=== PATIENT | female | born 1960 | race African-American/Black ===

== ENCOUNTER 2021-10-12 14:04 | Inpatient (IN) | payer MEDICAID, OTHER ==
[~2021-10-12] VITALS: Ht 160 cm; Wt 98.5 kg
[2021-10-12 17:45] LABS: Basophils # (auto) 0 10 ^3/uL (0-0.2); Eosinophils # (auto) 0 10 ^3/uL (0-0.8); Red Blood Cells 5.11 10^6/uL (4.0-5.20); White Blood Cell 3.4 10^3/uL (4.4-10.8)
[2021-10-12 17:47] LABS: Basophils % (auto) 0.7 % (0.0-2.0); Hematocrit 37.6 % (36.0-46.0); Hemoglobin 12.3 g/dL (12.2-16.2); Lymphocytes # (auto) 0.6 10 ^3/uL (0.4-5.4); Lymphocytes % (auto) 18.3 % (10.0-50.0); Mean Corpuscular Hgb Conc. 32.6 g/dL (32.0-36.0); Mean Corpuscular Volume 73.6 fL (80.0-100.0); Monocytes # (auto) 0.3 10 ^3/uL (0-1.3); Monocytes % (auto) 7.9 % (0.0-12.0); Neutrophils # (auto) 2.5 10 ^3/uL (1.6-8.6); Neutrophils % (auto) 73.1 % (37.0-80.0); Nucleated Red Blood Cells % 0.1 %; Red Cell Distribution Width 16.7 % (11.8-14.3)
[2021-10-12 17:59] LABS: Albumin 3.5 g/dL (3.4-5.0); Calcium 8.6 mg/dL (8.5-10.1); Potassium 4.1 mmol/L (3.5-5.1)
[2021-10-12 18:00] LABS: INR 0.99 (0.9-1.15); Partial Thromboplastin Time 31.6 sec (23.6-33.0)
[2021-10-12 18:06] LABS: Bilirubin, Total 0.4 mg/dL (0.2-1.0); Total Protein 7.4 g/dL (6.4-8.2)
[2021-10-13] MEDS ORDERED: ACETAMINOPHEN 325 MG TAB PO PRN (06:00)
[2021-10-13] MEDS ORDERED: DOCUSATE SOD 100 MG CAP PO PRN (06:00)
[2021-10-13] MEDS ORDERED: DEXTROSE (50%) 50ML SYRG IV PRN (06:00)
[2021-10-13] MEDS ORDERED: SODIUM CHLORIDE 0.9% 1,000 ML IV ONE ×2 (06:00→08:00)
[2021-10-13] MEDS ORDERED: ONDANSETRON HCL 4 MG/2 ML VIAL IV PRN (06:00)
[2021-10-13] MEDS: InsuLIN REG 1unit/0.01ml Soln (100units/ml) SC SCH ×2 (07:00→11:30)
[2021-10-13] MEDS: ACCU-CHEK COMFORT CURVE STRIP VI SCH ×2 (07:08→11:58)
[2021-10-13] MEDS ORDERED: MORPHINE SULFATE 4 MG/ML SYR/VIAL IV PRN (08:00)
[2021-10-13] MEDS ORDERED: NITROGLYCERIN 0.4 MG SL TAB SL PRN (08:00)
[2021-10-13 09:00] VITALS: BP 96/60
[2021-10-13 11:57] LABS: Basophils # (auto) 0 10 ^3/uL (0-0.2); Eosinophils # (auto) 0 10 ^3/uL (0-0.8); Eosinophils % (auto) 0.1 % (0.0-7.0); Hemoglobin 11.9 g/dL (12.2-16.2); Lymphocytes # (auto) 0.4 10 ^3/uL (0.4-5.4); Neutrophils # (auto) 2.6 10 ^3/uL (1.6-8.6); Nucleated Red Blood Cells % 0.1 %; White Blood Cell 3.3 10^3/uL (4.4-10.8)
[2021-10-13 11:59] LABS: Basophils % (auto) 0.9 % (0.0-2.0); Hematocrit 36.4 % (36.0-46.0); Lymphocytes % (auto) 12.6 % (10.0-50.0); Mean Corpuscular Hgb Conc. 32.6 g/dL (32.0-36.0); Monocytes # (auto) 0.2 10 ^3/uL (0-1.3); Monocytes % (auto) 6.3 % (0.0-12.0); Neutrophils % (auto) 80.1 % (37.0-80.0); Red Blood Cells 4.97 10^6/uL (4.0-5.20); Red Cell Distribution Width 16.8 % (11.8-14.3)
[2021-10-13 12:02] LABS: BUN/Creatinine Ratio 10.6; Calcium 8.1 mg/dL (8.5-10.1); Potassium 4.1 mmol/L (3.5-5.1)
[2021-10-13 12:17] LABS: Mean Corpuscular Hemoglobin 23.9 pg (28.0-32.0); Mean Corpuscular Volume 73.3 fL (80.0-100.0)
[2021-10-13] MEDS ORDERED: ERGO20002 PO (14:00)
[2021-10-13] MEDS ORDERED: ZINC220T6 PO (14:00)
[2021-10-13] MEDS ORDERED: PANT40T PO (14:00)
[2021-10-13] MEDS ORDERED: ASCO500C49 PO (14:00)
[2021-10-13] MEDS ORDERED: SUCR1SUS10 PO (14:00)
[2021-10-13] MEDS ORDERED: POTA1TAB64 PO (14:03)
[2021-10-13] MEDS ORDERED: HYDR-4611 PO (14:03)
[2021-10-13] MEDS ORDERED: NALO4SPR2 NAS (14:03)
[2021-10-13] MEDS ORDERED: BACL10TA PO (14:03)
[2021-10-13] MEDS ORDERED: GABA300C10 PO (14:03)
[2021-10-13] MEDS ORDERED: FUR20T PO (14:03)
[2021-10-13] MEDS ORDERED: TIZA4TAB7 PO (14:03)
[2021-10-13] MEDS ORDERED: SUCRALFATE 1 GM/10 ML ORAL SUSP PO SCH (17:00)
[2021-10-13] MEDS ORDERED: InsuLIN REG 1unit/0.01ml Soln (100units/ml) SC SCH (22:00)
[2021-10-13] MEDS ORDERED: PANTOPRAZOLE 40 MG TAB PO SCH (22:00)
== END 2021-10-13 17:41 | disposition home or self-care (01) | DRG 137 ==
LOC: ER 14:04 → EDBD 14:04 → OVERFLOW 10-13 07:50 → WEST WING 10-13 09:10
PROVIDERS: ADMIT Internal Medicine; ATTEND Internal Medicine
DX: U07.1 COVID-19 (principal); J12.82 Pneumonia due to coronavirus disease 2019; N17.9 Acute kidney failure, unspecified; K92.0 Hematemesis; K74.60 Unspecified cirrhosis of liver; I95.9 Hypotension, unspecified; D50.9 Iron deficiency anemia, unspecified; E66.9 Obesity, unspecified; E66.01 Morbid (severe) obesity due to excess calories; E78.5 Hyperlipidemia, unspecified; I12.9 Hypertensive chronic kidney disease with stage 1 through stage 4 chronic kidney disease, or unspecified chronic kidney disease; K21.9 Gastro-esophageal reflux disease without esophagitis; K44.9 Diaphragmatic hernia without obstruction or gangrene; Z96.651 Presence of right artificial knee joint; M54.50 Low back pain, unspecified; K80.20 Calculus of gallbladder without cholecystitis without obstruction; N18.30 Chronic kidney disease, stage 3 unspecified; Z68.38 Body mass index [BMI] 38.0-38.9, adult; Z90.710 Acquired absence of both cervix and uterus
CPT/HCPCS: 36415; 74176; 80048; 80053; 82150; 83690; 85025; 85610; 85730; 86850; 86900; 86901; 87426; 96360; G0378

== ENCOUNTER 2022-08-12 20:04 | Inpatient (IN) | payer MEDICAID ==
[~2022-08-12] VITALS: Ht 160 cm; Wt 105.8 kg
[~2022-08-12 20:04] MED LIST: ASCO500C49 PO; BACL10TA PO; ERGO20002 PO; GABA300C10 PO; HYDR-4611 PO; NALO4SPR2 NAS; PANT40T PO; SUCR1SUS10 PO; TIZA4TAB7 PO; ZINC220T6 PO
[2022-08-12 21:47] LABS: Basophils # (auto) 0 10 ^3/uL (0-0.2); Basophils % (auto) 0.4 % (0.0-2.0); Eosinophils # (auto) 0 10 ^3/uL (0-0.8); Eosinophils % (auto) 0.1 % (0.0-7.0); Mean Corpuscular Hemoglobin 24.2 pg (28.0-32.0); Monocytes # (auto) 0.6 10 ^3/uL (0-1.3); Monocytes % (auto) 6.5 % (0.0-12.0); White Blood Cell 8.6 10^3/uL (4.4-10.8)
[2022-08-12 21:48] LABS: Hematocrit 38.9 % (36.0-46.0); Hemoglobin 12.4 g/dL (12.2-16.2); Lymphocytes % (auto) 11.6 % (10.0-50.0); Mean Corpuscular Volume 75.8 fL (80.0-100.0); Neutrophils % (auto) 81.4 % (37.0-80.0); Red Blood Cells 5.13 10^6/uL (4.0-5.20); Red Cell Distribution Width 16.8 % (11.8-14.3)
[2022-08-12 22:08] LABS: Albumin 3.6 g/dL (3.4-5.0); BUN/Creatinine Ratio 17.6; Calcium 8.8 mg/dL (8.5-10.1); Potassium 4.5 mmol/L (3.5-5.1)
[2022-08-12 22:11] LABS: Bilirubin, Total 0.3 mg/dL (0.2-1.0); Total Protein 7.5 g/dL (6.4-8.2)
[2022-08-13] MEDS ORDERED: ONDANSETRON HCL 4 MG/2 ML VIAL IV PRN (06:15)
[2022-08-13] MEDS ORDERED: ACETAMINOPHEN 325 MG TAB PO PRN (06:15)
[2022-08-13] MEDS ORDERED: HYDROcodone-ACET 5/325MG TAB PO PRN (06:15)
[2022-08-13] MEDS ORDERED: DOCUSATE SOD 100 MG CAP PO PRN (06:15)
[2022-08-13] MEDS ORDERED: MORPHINE SULFATE INJ 2 MG/ml SYRG IV PRN (06:30)
[2022-08-13] MEDS ORDERED: NITROGLYCERIN 0.4 MG SL TAB SL PRN (06:30)
[2022-08-13] MEDS ORDERED: cefTRIAXone 1GM/50ML D5W 50 ML IV ONE (06:45)
[2022-08-13 07:09] LABS: Eosinophils # (auto) 0 10 ^3/uL (0-0.8); Hemoglobin 12.2 g/dL (12.2-16.2); Mean Corpuscular Hemoglobin 23.8 pg (28.0-32.0); Monocytes # (auto) 0.8 10 ^3/uL (0-1.3)
[2022-08-13 07:12] LABS: Basophils # (auto) 0 10 ^3/uL (0-0.2); Basophils % (auto) 0.6 % (0.0-2.0); Eosinophils % (auto) 0.4 % (0.0-7.0); Hematocrit 38.5 % (36.0-46.0); Lymphocytes % (auto) 12.8 % (10.0-50.0); Mean Corpuscular Hgb Conc. 31.6 g/dL (32.0-36.0); Mean Corpuscular Volume 75.2 fL (80.0-100.0); Monocytes % (auto) 9.9 % (0.0-12.0); Neutrophils % (auto) 76.3 % (37.0-80.0); Nucleated Red Blood Cells % 0.1 %; Red Blood Cells 5.12 10^6/uL (4.0-5.20); White Blood Cell 7.8 10^3/uL (4.4-10.8)
[2022-08-13 07:39] LABS: Calcium 9.1 mg/dL (8.5-10.1); Potassium 4.5 mmol/L (3.5-5.1)
[2022-08-13 07:44] LABS: Albumin 3.4 g/dL (3.4-5.0); BUN/Creatinine Ratio 14.6; Bilirubin, Total 0.5 mg/dL (0.2-1.0); Total Protein 7.7 g/dL (6.4-8.2)
[2022-08-13] MEDS: cefTRIAXone 1GM/50ML D5W 50 ML IV SCH (09:31)
[2022-08-13] MEDS: ENOXAPARIN SOD 40 MG/0.4 ML SYRINGE SC SCH (10:00)
[2022-08-13 10:30] VITALS: BP 130/70
[2022-08-13] MEDS: FAMOTIDINE (10MG/ML) 2ML VL IV SCH ×2 (10:59→22:27)
[2022-08-13 12:18] LABS: Urine Bacteria MANY /hpf (None Seen); Urine Blood 3+ /uL (Negative); Urine Budding Yeast LOADED /hpf (None Seen); Urine Mucus FEW (None Seen); Urine Specific Gravity 1.017 (1.001-1.035); Urine WBC 997 /hpf (0 - 5); Urine WBC Clumps PRESENT /hpf (None Seen)
[2022-08-13 12:52] VITALS: BP 135/65
[2022-08-13] MEDS: SODIUM CHLOR 0.9% PF (SALINE LOCK) 10ML VIAL/SYR IV SCH ×2 (13:48→22:27)
[2022-08-13] MEDS: MORPHINE SULFATE INJ 2 MG/ml SYRG IV PRN ×2 (16:13→23:13)
[2022-08-13 17:00] VITALS: BP 123/81
[2022-08-13] MEDS ORDERED: LORazepam 2MG/ML-1ML VIAL IV PRN (21:15)
[2022-08-13 22:00] VITALS: BP 98/61
[2022-08-14 05:00] VITALS: BP_SYST 98; BP_SYST 99; BP_DIAS 53; BP_DIAS 61
[2022-08-14] MEDS: SODIUM CHLOR 0.9% PF (SALINE LOCK) 10ML VIAL/SYR IV SCH ×3 (05:22→21:45)
[2022-08-14] MEDS: HYDROcodone-ACET 10/325MG TAB PO PRN ×2 (06:13→12:14)
[2022-08-14 06:48] LABS: Basophils # (auto) 0.1 10 ^3/uL (0-0.2); Eosinophils # (auto) 0.1 10 ^3/uL (0-0.8); Eosinophils % (auto) 1.8 % (0.0-7.0); Hematocrit 34.1 % (36.0-46.0); Hemoglobin 11.1 g/dL (12.2-16.2); Lymphocytes # (auto) 1.2 10 ^3/uL (0.4-5.4); Lymphocytes % (auto) 22.5 % (10.0-50.0); Mean Corpuscular Hemoglobin 24.7 pg (28.0-32.0); Mean Corpuscular Hgb Conc. 32.6 g/dL (32.0-36.0); Mean Corpuscular Volume 75.8 fL (80.0-100.0); Monocytes # (auto) 0.6 10 ^3/uL (0-1.3); Neutrophils # (auto) 3.4 10 ^3/uL (1.6-8.6); Neutrophils % (auto) 62.7 % (37.0-80.0); Red Blood Cells 4.49 10^6/uL (4.0-5.20); Red Cell Distribution Width 16.7 % (11.8-14.3); White Blood Cell 5.4 10^3/uL (4.4-10.8)
[2022-08-14 06:59] LABS: Albumin 3.2 g/dL (3.4-5.0); BUN/Creatinine Ratio 17.3; Bilirubin, Total 0.6 mg/dL (0.2-1.0); Calcium 8.8 mg/dL (8.5-10.1); Potassium 4.4 mmol/L (3.5-5.1); Total Protein 6.5 g/dL (6.4-8.2)
[2022-08-14 09:00] VITALS: BP 134/77
[2022-08-14] MEDS: FAMOTIDINE (10MG/ML) 2ML VL IV SCH ×2 (09:07→21:45)
[2022-08-14] MEDS: ENOXAPARIN SOD 40 MG/0.4 ML SYRINGE SC SCH (09:07)
[2022-08-14] MEDS: MORPHINE SULFATE INJ 2 MG/ml SYRG IV PRN (09:08)
[2022-08-14] MEDS: cefTRIAXone 1GM/50ML D5W 50 ML IV SCH (09:11)
[2022-08-14] MEDS ORDERED: AMOX-277 PO (11:23)
[2022-08-14 13:00] VITALS: BP 107/68
[2022-08-14 16:56] VITALS: BP 150/90
[2022-08-14 17:18] VITALS: BP 109/70
[2022-08-14 22:00] VITALS: BP 105/69
[2022-08-15] MEDS: SODIUM CHLOR 0.9% PF (SALINE LOCK) 10ML VIAL/SYR IV SCH (06:00)
[2022-08-15] MEDS: cefTRIAXone 1GM/50ML D5W 50 ML IV SCH ×2 (09:00→10:38)
[2022-08-15] MEDS: FAMOTIDINE (10MG/ML) 2ML VL IV SCH (10:00)
[2022-08-15] MEDS: ENOXAPARIN SOD 40 MG/0.4 ML SYRINGE SC SCH (10:38)
[2022-08-15] MEDS: MORPHINE SULFATE INJ 2 MG/ml SYRG IV PRN (10:39)
[2022-08-15 12:45] VITALS: BP 113/84
[2022-08-15] MEDS ORDERED: GABAPENTIN 300 MG CAP PO ONE (14:45)
== END 2022-08-15 15:00 | disposition home health service (06) | DRG 204 ==
LOC: EDBD 20:04 → ER 20:15 → TELE 08-13 06:29 → TELE-WESTW 08-13 09:50
PROVIDERS: ADMIT Nurse Practitioner Family; ATTEND Internal Medicine
DX: R55 Syncope and collapse (principal); K74.60 Unspecified cirrhosis of liver; I50.9 Heart failure, unspecified; I11.0 Hypertensive heart disease with heart failure; E11.9 Type 2 diabetes mellitus without complications; E86.0 Dehydration; F10.10 Alcohol abuse, uncomplicated; W05.0XXA Fall from non-moving wheelchair, initial encounter; S00.81XA Abrasion of other part of head, initial encounter; E66.01 Morbid (severe) obesity due to excess calories; Z68.41 Body mass index [BMI] 40.0-44.9, adult; G89.29 Other chronic pain; K44.9 Diaphragmatic hernia without obstruction or gangrene; E78.5 Hyperlipidemia, unspecified; N39.0 Urinary tract infection, site not specified; Z96.651 Presence of right artificial knee joint; M19.90 Unspecified osteoarthritis, unspecified site; M54.50 Low back pain, unspecified; Z20.822 Contact with and (suspected) exposure to COVID-19; S93.401A Sprain of unspecified ligament of right ankle, initial encounter; Z99.3 Dependence on wheelchair; Z83.3 Family history of diabetes mellitus; Z90.710 Acquired absence of both cervix and uterus; Y93.89 Activity, other specified; Y92.098 Other place in other non-institutional residence as the place of occurrence of the external cause; Y99.8 Other external cause status; S82.51XK Displaced fracture of medial malleolus of right tibia, subsequent encounter for closed fracture with nonunion
CPT/HCPCS: 36415; 70450; 70551; 71045; 72125; 72148; 73600; 80053; 81001; 83880; 84484; 85025; 87426; 93005; 96365; 97163; G0378; J0696; J3490